=== PATIENT | female | born 1960 | race Caucasian/White ===

== ENCOUNTER 2018-01-26 15:54 | Emergency (ER) | payer OTHER ==
[~2018-01-26] VITALS: Ht 172.7 cm; Wt 112.2 kg
[2018-01-26 16:10] VITALS: BP 191/94; PULSE 95; TEMP 36.4; O2SAT 99; Ht 172.7 cm; Wt 112.2 kg
--- NOTE | 2018-01-26 17:15 | EMERGENCY ROOM VISIT NOTE ---
ED Visit Note First contact with patient: 16:25 CHIEF COMPLAINT: Nosebleed HISTORY OF PRESENT ILLNESS: This patient developed sudden onset of a nosebleed about 2 hours ago. The bleeding has not stopped with pressure. There was no trauma to the nose and no recent upper respiratory infection. The patient is not on Coumadin or other anticoagulants. No difficulty breathing, no cough, no headache or sore throat. The patient has been experiencing intermittent nosebleeds for the past month and has seen ENT. She contacted their office today with acute onset of the nosebleed and was advised to use a cotton ball soaked in afrin and come to the ED if symptoms do not improve. The patient states she applied pressure for 45 minutes, followed by sprays of Afrin and pressure for another 45 minutes. She then placed the cotton ball soaked in Afrin in her nose and allowed this to sit for approximately 20 minutes. The patient states the bleeding continues to occur. REVIEW OF SYSTEMS: A complete 6 point review of systems was reviewed with the patient with pertinent positives and negatives as per history of present illness. All else were negative. PMH: The patient is healthy; there is no significant medical or surgical history. SOCIAL HISTORY: Patient lives locally with family. She denies drug, alcohol, tobacco use. PHYSICAL EXAM: Vital Signs: Reviewed Nurse's notes. The patient is hypertensive , but otherwise vital signs normal. GENERAL: This is a 58-year-old white female, in no acute distress, nondiaphoretic, well-developed well-nourished. SKIN: The skin was without rashes, erythema, edema, or bruising. There is no tenting of the skin. Capillary reflex less than 2 seconds. HEAD: Normocephalic atraumatic. EARS: External auditory canals clear, tympanic membranes pearly burger without erythema or effusion bilaterally. EYES: Pupils equal round and reactive to light and accommodation. Conjunctivae without injection, sclerae without icterus. Extraocular movements intact. NOSE: Patent, turbinates without inflammation or active discharge. No sinus tenderness. Dried blood within both nares, but no active bleeding. MOUTH: Mucous membranes moist. Tonsils are not enlarged. Pharynx without erythema or exudate, however there is blood in the posterior pharynx. Uvula midline. Airway patent. Tongue does not deviate. NECK: Supple without nuchal rigidity. No lymphadenopathy. No thyromegaly. Cervical spine is nontender. No JVD. HEART: Regular rate and rhythm without murmurs gallops or rubs. LUNGS: Clear to auscultation bilaterally without wheezes, rales or rhonchi. No dullness to percussion. No retractions or accessory muscle use. MUSCULOSKELETAL: No muscle atrophy, erythema, or edema noted. Full range of motion without joint tenderness in all extremities. No tenderness to palpation. Normal gait. Strength 5/5 throughout. NEURO: Patient was alert and oriented to person place and time. Normal sensation to light and sharp touch. Deep tendon reflexes 2+ throughout. No focal neurological deficits. EMERGENCY DEPARTMENT COURSE: The patient was seen and evaluated as above. The patient was initially holding paper towels to her nose and was hesitant to remove them. Upon removal of the paper towels, there was no active bleeding from the nares. The patient was monitored for approximately 20 minutes without any increase in bleeding. I discussed with the patient that I suspect her nosebleeds may be related to the elevated blood pressure and encouraged her to follow-up with her primary care provider regarding this finding. I did encourage her to continue to follow-up with ENT for ongoing evaluation and management of the epistaxis. The patient was provided with nasal clips to use for any rebleeding. Discharge instructions reviewed, the patient was discharged home in good condition. I attest that I have personally reviewed the patient's current medication list. Patient was found to have an elevated blood pressure and was referred to their primary doctor for recheck and further treatment. The differential diagnosis includes epistaxis, foreign body, hypertension, trauma, aneurysm, irritant, hepatic failure, leukemia, thrombocytopenia, anemia , malignancy, heparin toxicity, hypocoagulable state, allergic rhinitis, drug use, NSAID toxicity, hemophilia, von Willebrand Disease, and others DIAGNOSIS: Epistaxis The chart was completed utilizing [employer] Speech voice recognition software. Grammatical errors, random word insertions, pronoun errors, and incomplete sentences are an occasional consequence of this system due to software limitations, ambient noise, and hardware issues. Any formal questions or concerns about the content, text, or information contained within the body of this dictation should be directly addressed to the provider for clarification. Current/Historical Medications No Active Prescriptions or Reported Meds Allergies Coded Allergies: No Known Allergies (Unverified , 01/26/18) Vital Signs Date Time Temp Pulse Resp B/P (MAP) Pulse Ox O2 Delivery O2 Flow Rate FiO2 01/26/18 16:10 36.4 95 20 191/94 99 Room Air Departure Information Impression Primary Impression: Epistaxis Dispostion Home / Self-Care Condition GOOD Prescriptions No Active Prescriptions or Reported Meds Referrals Yarely Crabtree .DIOGENES (PCP) Patient Instructions ED Nosebleed, My [facility] Additional Instructions You were seen in the Emergency Department today for your Nose Bleed (Epistaxis) . As discussed, the bleeding had stopped prior to arrival in the emergency department. I suspect the bleeding may be related to your elevated blood pressure. You should follow-up with your primary care provider regarding possible treatment for this. Do NOT blow your nose for the next few days. This can result in recurrence of your nosebleed. You should consider using a humidifier to help moisten the air and decrease instances of nosebleeds. Follow-up within the next 2-3 days with your ENT specialist regarding ongoing management of the bleeding. Return to the emergency department if your symptoms persist despite treatment plan outlined above or if the following symptoms occur: uncontrollable nosebleed , dizziness, lightheadedness, pre-syncope, or re-bleed.
== END 2018-01-26 17:23 | disposition home or self-care (01) ==
LOC: C.EDB 15:55 → C.EDD 17:23
DX: R04.0 Epistaxis (principal)